=== PATIENT | male | born 1965 | race Caucasian/White ===

== ENCOUNTER 2016-12-04 19:07 | Emergency (ER) | payer OTHER ==
[~2016-12-04] VITALS: Ht 175.2 cm; Wt 95.3 kg
[~2016-12-04 19:07] MED LIST: ATARAX,VISTARIL50 MG PO; CARAFATE1 G1 PO; CELEXA40 MG PO; CLEOCIN150 MG PO; CLINDAMYCIN HC300 MG PO; CLONAZEPAM1 MG PO; DULOXETINE HCL60 MG PO; HYDROCODONE BIT1 T11 PO; KLONOPIN1 M1 PO; LAMICTAL25 MG PO; METHOCARBAMOL750 M1 PO; MOTRIN800 MG PO; NEURONTIN300 MG PO; PEN-VEE K500 MG PO; PEPCID20 MG PO; PREDNISONE20 M1 PO; PRILOSEC20 MG PO; SEROQUEL200 MG PO; TRIXAICIN HP0.075% T; ULTRAM50 MG PO; VICODIN 5-3001 EACH PO; VISTARIL50 MG PO; VITAMIN D-32000 UNI1 PO; VITAMIN D50000 I3 PO
[2016-12-04 20:02] LABS: BASO # 0.1 10*3/uL (0.0-0.1); BASO % 0.4 % (0.0-1.0); EOS # 0.3 10*3/uL (0.0-0.4); EOS % 2.5 % (1.0-4.0); HEMATOCRIT 49.3 % (42.0-52.0); HEMOGLOBIN 16.9 g/dl (14.0-18.0); IG # 0.1 10*3/uL (0.0-0.1); LYMPH # 2.3 10*3/uL (1.3-4.4); LYMPH % 17.8 % (27.0-41.0); MEAN CELL VOLUME 98.2 fl (80.0-94.0); MEAN CORPUSCULAR HGB 33.7 pg (27.0-31.0); MEAN CORPUSCULAR HGB CONC 34.3 g/dl (33.0-37.0); MEAN PLATELET VOLUME 10.7 fl (9.6-12.3); MONO # 0.6 10*3/uL (0.1-1.0); MONO % 4.9 % (3.0-9.0); NEUT # 9.4 10*3/uL (2.3-7.9); PLATELET COUNT AUTOMATED 237 10*3/uL (130-400); RED BLOOD COUNT 5.02 10*6/uL (4.50-5.90); RED CELL DISTRI WIDTH 15.3 % (0-14.5); WHITE BLOOD COUNT 12.6 10*3/uL (4.8-10.8)
[2016-12-04 20:21] LABS: INTERNATIONAL NORM RATIO 0.9 (2.0-3.5); PROTHROMBIN TIME 9.6 SECONDS (9.0-12.4)
[2016-12-04 20:25] LABS: ALBUMIN 3.8 gm/dl (3.1-4.5); ALKALINE PHOSPHATASE 65 U/L (45-117); BILIRUBIN, DIRECT 0.1 mg/dL (0.0-0.2); BILIRUBIN, TOTAL 0.5 mg/dl (0.2-1.0); BUN 9 mg/dl (7-24); CARBON DIOXIDE 24 mmol/L (21-32); CHLORIDE 109 mmol/L (98-107); EST GLOM FILT AFRICAN AMERICAN > 60 ml/min; GLUCOSE 82 mg/dL (65-99); POTASSIUM 4.4 mmol/L (3.5-5.1); SGOT/AST 24 IU/L (3-35); SGPT/ALT 37 U/L (12-78); SODIUM 145 mmol/L (136-145)
[2016-12-04] MEDS ORDERED: TYLENOL325 M2 PO (22:00)
== END 2016-12-04 21:50 | disposition home or self-care (01) ==
LOC: ED 19:07
PROVIDERS: Emergency Medicine
DX: S00.12XA Contusion of left eyelid and periocular area, initial encounter (principal); S50.02XA Contusion of left elbow, initial encounter; S50.01XA Contusion of right elbow, initial encounter; S80.212A Abrasion, left knee, initial encounter; S80.211A Abrasion, right knee, initial encounter; S09.90XA Unspecified injury of head, initial encounter; M25.512 Pain in left shoulder; M25.511 Pain in right shoulder; F32.9 Major depressive disorder, single episode, unspecified; K21.9 Gastro-esophageal reflux disease without esophagitis; E78.00 Pure hypercholesterolemia, unspecified; Y08.89XA Assault by other specified means, initial encounter; Y93.89 Activity, other specified; Y92.89 Other specified places as the place of occurrence of the external cause; Y99.9 Unspecified external cause status

== ENCOUNTER 2022-04-22 12:09 | Inpatient (IN) | payer MEDICAID ==
[~2022-04-22] VITALS: Ht 170.1 cm; Wt 71.7 kg
[~2022-04-22 12:09] MED LIST changes: +BREO ELLIPTA 11 EACH INH; +BUDESONIDE-FO10.2 GM INH; +LEVOFLOXACIN500 MG PO; +LISINOPRIL10 M1 PO; +PREDNISONE10 MG PO; +PROAIR HFA8.5 GM INH; +SPIRIVA -- 3018 MCG INH; +TYLENOL325 M2 PO
[2022-04-22 12:15] VITALS: BP 132/75
[2022-04-22 12:44] LABS: BASO % 0.5 % (0.0-1.0); EOS # 0.8 10*3/uL (0.0-0.4); EOS % 11.9 % (1.0-4.0); HEMATOCRIT 44.6 % (42.0-52.0); LYMPH # 1.1 10*3/uL (1.3-4.4); LYMPH % 16.2 % (27.0-41.0); MEAN CELL VOLUME 95.7 fl (80.0-94.0); MEAN CORPUSCULAR HGB 32.8 pg (27.0-31.0); MEAN CORPUSCULAR HGB CONC 34.3 g/dl (33.0-37.0); MEAN PLATELET VOLUME 10.7 fl (9.6-12.3); MONO # 0.7 10*3/uL (0.1-1.0); MONO % 10.3 % (3.0-9.0); NEUT # 3.9 10*3/uL (2.3-7.9); NEUT % 60.8 % (47.0-73.0); PLATELET COUNT AUTOMATED 265 10*3/uL (130-400); RED BLOOD COUNT 4.66 10*6/uL (4.50-5.90); RED CELL DISTRI WIDTH 15.6 % (0-14.5); WHITE BLOOD COUNT 6.5 10*3/uL (4.8-10.8)
[2022-04-22 13:00] LABS: ACT PARTIAL THROMBO TIME 33.3 SECONDS (20.0-32.1); INTERNATIONAL NORM RATIO 0.9 (2.0-3.5)
[2022-04-22 13:03] LABS: ALKALINE PHOSPHATASE 73 U/L (45-117); BUN 8 mg/dl (7-24); CHLORIDE 106 mmol/L (98-107); CREATININE 0.64 mg/dL (0.70-1.30); POTASSIUM 4.3 mmol/L (3.5-5.1); SGOT/AST 17 IU/L (3-35); SGPT/ALT 30 U/L (12-78); SODIUM 136 mmol/L (136-145); TOTAL PROTEIN 7.1 gm/dL (6.4-8.2)
[2022-04-22 13:03] LABS: BILIRUBIN Negative (Negative); BLOOD Negative (Negative); CLARITY Clear (Clear); COLOR Yellow (Yellow); GLUCOSE Negative (Negative); KETONE Negative (Negative); LEUKO ESTERASE Negative (Negative); NITRITE Negative (Negative); PH 8.5 (4.5-8.0); SPECIFIC GRAVITY 1.015 (1.001-1.030)
[2022-04-22 13:12] LABS: BACTERIA TRACE; EPITHELIAL CELLS 0-2; MUCOUS 1+
[2022-04-22 15:00] VITALS: BP 120/74
[2022-04-22] MEDS ORDERED: PERCOCET 7.5-31 EACH PO (15:20)
[2022-04-22 20:00] VITALS: BP 135/64
[2022-04-23] VITALS: BP 142/68
[2022-04-23 06:33] LABS: HEMATOCRIT 43.7 % (42.0-52.0); MEAN CELL VOLUME 95.8 fl (80.0-94.0); MEAN CORPUSCULAR HGB 33.1 pg (27.0-31.0); MEAN CORPUSCULAR HGB CONC 34.6 g/dl (33.0-37.0); MEAN PLATELET VOLUME 11.5 fl (9.6-12.3); PLATELET COUNT AUTOMATED 247 10*3/uL (130-400); RED BLOOD COUNT 4.56 10*6/uL (4.50-5.90); RED CELL DISTRI WIDTH 15.1 % (0-14.5); WHITE BLOOD COUNT 9.5 10*3/uL (4.8-10.8)
[2022-04-23 06:37] LABS: MANUAL DIFF REFLEX YES
[2022-04-23 06:54] LABS: BUN 9 mg/dl (7-24); CHLORIDE 103 mmol/L (98-107); CREATININE 0.75 mg/dL (0.70-1.30); POTASSIUM 3.9 mmol/L (3.5-5.1); SODIUM 134 mmol/L (136-145)
[2022-04-23 07:39] LABS: PLATELET SUFFICIENCY NORMAL (NORMAL); TOTAL CELLS COUNTED 100 #CELLS
[2022-04-23 08:00] VITALS: BP 136/71
[2022-04-23] MEDS ORDERED: VITAMIN D350 MC2 PO (10:05)
[2022-04-23] MEDS ORDERED: PREDNISONE10 MG PO (10:05)
[2022-04-23] MEDS ORDERED: LEVOFLOXACIN500 MG PO (10:05)
== END 2022-04-23 10:56 | disposition home or self-care (01) | DRG 190 ==
LOC: ED 12:09 → EDHOLD 13:31 → 5E 14:09
PROVIDERS: Emergency Medicine; Internal Medicine; ADMIT Internal Medicine; ATTEND Internal Medicine
DX: J44.1 Chronic obstructive pulmonary disease with (acute) exacerbation (principal); J18.9 Pneumonia, unspecified organism; J44.0 Chronic obstructive pulmonary disease with (acute) lower respiratory infection; F17.219 Nicotine dependence, cigarettes, with unspecified nicotine-induced disorders; W19.XXXA Unspecified fall, initial encounter; M25.511 Pain in right shoulder; G89.29 Other chronic pain; D75.89 Other specified diseases of blood and blood-forming organs; K21.9 Gastro-esophageal reflux disease without esophagitis; E78.00 Pure hypercholesterolemia, unspecified; F32.A Depression, unspecified; I10 Essential (primary) hypertension; F17.210 Nicotine dependence, cigarettes, uncomplicated; Y93.89 Activity, other specified; Y92.89 Other specified places as the place of occurrence of the external cause; Y99.8 Other external cause status

== ENCOUNTER 2022-05-21 10:37 | Inpatient (IN) | payer MEDICAID ==
[2022-05-21] VITALS (7 sets, daily range): BP systolic 90–121; BP diastolic 58–91
[~2022-05-21] VITALS: Ht 175.3 cm; Wt 74.8 kg
[~2022-05-21 10:37] MED LIST changes: +PERCOCET 7.5-31 EACH PO; +VITAMIN D350 MC2 PO
[2022-05-21 10:56] LABS: BASO % 0.6 % (0.0-1.0); EOS # 0.9 10*3/uL (0.0-0.4); EOS % 14.3 % (1.0-4.0); HEMATOCRIT 42.5 % (42.0-52.0); LYMPH % 14.9 % (27.0-41.0); MEAN CELL VOLUME 98.4 fl (80.0-94.0); MEAN CORPUSCULAR HGB 32.6 pg (27.0-31.0); MEAN CORPUSCULAR HGB CONC 33.2 g/dl (33.0-37.0); MEAN PLATELET VOLUME 10.4 fl (9.6-12.3); MONO # 0.5 10*3/uL (0.1-1.0); MONO % 7.3 % (3.0-9.0); NEUT # 4.1 10*3/uL (2.3-7.9); NEUT % 62.6 % (47.0-73.0); PLATELET COUNT AUTOMATED 246 10*3/uL (130-400); RED BLOOD COUNT 4.32 10*6/uL (4.50-5.90); RED CELL DISTRI WIDTH 15.7 % (0-14.5); WHITE BLOOD COUNT 6.6 10*3/uL (4.8-10.8)
[2022-05-21 11:13] LABS: ALKALINE PHOSPHATASE 72 U/L (45-117); BUN 8 mg/dl (7-24); CHLORIDE 105 mmol/L (98-107); CREATININE 0.59 mg/dL (0.70-1.30); POTASSIUM 4.4 mmol/L (3.5-5.1); SGOT/AST 18 IU/L (3-35); SGPT/ALT 19 U/L (12-78); SODIUM 141 mmol/L (136-145); TOTAL PROTEIN 6.8 gm/dL (6.4-8.2)
[2022-05-21 11:14] LABS: ACT PARTIAL THROMBO TIME 31.5 SECONDS (20.0-32.1); INTERNATIONAL NORM RATIO 0.9 (2.0-3.5)
[2022-05-21] MEDS ORDERED: KENALOG 0.1%80 GM T (11:42)
[2022-05-21] MEDS ORDERED: NEURONTIN300 MG PO (11:43)
[2022-05-21] MEDS ORDERED: COMBIVENT RESPIM4 GM INH (11:43)
[2022-05-21] MEDS ORDERED: ALLERGY RELIEF180 MG PO (11:44)
[2022-05-21 16:50] LABS: BILIRUBIN Negative (Negative); BLOOD 3+ (Negative); CLARITY Cloudy (Clear); COLOR Yellow (Yellow); GLUCOSE Negative (Negative); KETONE Trace (Negative); LEUKO ESTERASE Negative (Negative); NITRITE Negative (Negative); PH 6.5 (4.5-8.0); SPECIFIC GRAVITY 1.015 (1.001-1.030)
[2022-05-21 16:58] LABS: BACTERIA 1+; EPITHELIAL CELLS 0-2; RBC TNTC rbc/hpf (0-2)
[2022-05-22] VITALS: BP 106/66
[2022-05-22 06:13] LABS: MEAN CELL VOLUME 97.6 fl (80.0-94.0); MEAN CORPUSCULAR HGB 33.3 pg (27.0-31.0); MEAN CORPUSCULAR HGB CONC 34.2 g/dl (33.0-37.0); MEAN PLATELET VOLUME 11.1 fl (9.6-12.3); PLATELET COUNT AUTOMATED 235 10*3/uL (130-400); RED BLOOD COUNT 3.69 10*6/uL (4.50-5.90); RED CELL DISTRI WIDTH 15.7 % (0-14.5); WHITE BLOOD COUNT 7.2 10*3/uL (4.8-10.8)
[2022-05-22 06:36] LABS: BUN 6 mg/dl (7-24); CHLORIDE 107 mmol/L (98-107); POTASSIUM 3.8 mmol/L (3.5-5.1); SODIUM 138 mmol/L (136-145)
[2022-05-22 06:44] LABS: ALKALINE PHOSPHATASE 54 U/L (45-117); CHOLESTEROL 179 mg/dL (<200); FREE T4 0.83 ng/dl (0.76-1.46); LDL CHOLESTEROL 54 mg/dL (9-159); SGOT/AST 18 IU/L (3-35); SGPT/ALT 15 U/L (12-78); THYROID STIM HORMONE (HS) 0.116 uIU/ml (0.358-4.75); TRIGLYCERIDES 37 mg/dl (<150)
[2022-05-22 06:45] LABS: MANUAL DIFF REFLEX YES
[2022-05-22 07:11] LABS: TOTAL CELLS COUNTED 100 #CELLS
[2022-05-22 07:12] LABS: PLATELET SUFFICIENCY NORMAL (NORMAL); POLYCHROMASIA SLIGHT
[2022-05-22 08:00] VITALS: BP 142/84
[2022-05-22 10:39] LABS: VITAMIN D, 25-HYDROXY 27.7 ng/mL (30-100)
[2022-05-22 12:00] VITALS: BP 101/55
[2022-05-22 16:00] VITALS: BP 97/60
[2022-05-22 20:00] VITALS: BP 108/67
[2022-05-23] VITALS: BP 113/68
[2022-05-23 05:33] LABS: BUN 7 mg/dl (7-24); CHLORIDE 107 mmol/L (98-107); SODIUM 141 mmol/L (136-145)
[2022-05-23 06:17] LABS: HEMATOCRIT 37.3 % (42.0-52.0); MEAN CELL VOLUME 98.2 fl (80.0-94.0); MEAN CORPUSCULAR HGB 32.6 pg (27.0-31.0); MEAN CORPUSCULAR HGB CONC 33.2 g/dl (33.0-37.0); MEAN PLATELET VOLUME 11.3 fl (9.6-12.3); PLATELET COUNT AUTOMATED 250 10*3/uL (130-400); RED CELL DISTRI WIDTH 16.3 % (0-14.5); WHITE BLOOD COUNT 13.2 10*3/uL (4.8-10.8)
[2022-05-23 06:21] LABS: MANUAL DIFF REFLEX YES
[2022-05-23 06:49] LABS: TOTAL CELLS COUNTED 100 #CELLS
[2022-05-23 06:50] LABS: OVALOCYTES FEW; PLATELET SUFFICIENCY NORMAL (NORMAL); POLYCHROMASIA SLIGHT
[2022-05-23 08:00] VITALS: BP 112/57
[2022-05-23 12:00] VITALS: BP 101/63
[2022-05-23 16:00] VITALS: BP 95/54
[2022-05-23 20:00] VITALS: BP 103/52
[2022-05-24] VITALS: BP 116/75
[2022-05-24 05:54] LABS: BUN 11 mg/dl (7-24); CHLORIDE 105 mmol/L (98-107); CREATININE 0.62 mg/dL (0.70-1.30); POTASSIUM 4.2 mmol/L (3.5-5.1); SODIUM 139 mmol/L (136-145)
[2022-05-24 06:00] LABS: HEMATOCRIT 35.3 % (42.0-52.0); MEAN PLATELET VOLUME 11.3 fl (9.6-12.3); PLATELET COUNT AUTOMATED 245 10*3/uL (130-400); RED BLOOD COUNT 3.64 10*6/uL (4.50-5.90); RED CELL DISTRI WIDTH 16.3 % (0-14.5); WHITE BLOOD COUNT 9.9 10*3/uL (4.8-10.8)
[2022-05-24 06:14] LABS: MANUAL DIFF REFLEX YES
[2022-05-24 07:22] LABS: ATYPICAL LYMPHS 1 % (0-0); PLATELET SUFFICIENCY NORMAL (NORMAL); TOTAL CELLS COUNTED 100 #CELLS
[2022-05-24 07:23] LABS: BURR CELLS FEW
[2022-05-24 08:00] VITALS: BP 122/64
[2022-05-24] MEDS ORDERED: ASPIRIN ADULT L81 M2 PO (09:48)
[2022-05-24] MEDS ORDERED: PREDNISONE10 MG PO (09:50)
[2022-05-24] MEDS ORDERED: ATORVASTATIN CA20 M1 PO (09:51)
[2022-05-24] MEDS ORDERED: TOPROL XL25 MG PO (09:52)
[2022-05-24] MEDS ORDERED: LEVOFLOXACIN750 M2 PO (09:53)
[2022-05-24 12:00] VITALS: BP 129/62
== END 2022-05-24 12:30 | disposition home or self-care (01) | DRG 871 ==
LOC: ED 10:37 → EDHOLD 11:32 → 4E 11:32 → EDHOLD 11:41 → 4E 18:49
PROVIDERS: Emergency Medicine; Internal Medicine; ADMIT Emergency Medicine; ATTEND Emergency Medicine
PROC: 5A09357 Assistance with Respiratory Ventilation, Less than 24 Consecutive Hours, Continuous Positive Airway Pressure (ICD-10-PCS; principal; 2022-05-21)
DX: A41.9 Sepsis, unspecified organism (principal); I21.4 Non-ST elevation (NSTEMI) myocardial infarction; J15.6 Pneumonia due to other Gram-negative bacteria; J96.01 Acute respiratory failure with hypoxia; J44.1 Chronic obstructive pulmonary disease with (acute) exacerbation; J44.0 Chronic obstructive pulmonary disease with (acute) lower respiratory infection; G89.29 Other chronic pain; M25.511 Pain in right shoulder; E78.00 Pure hypercholesterolemia, unspecified; F32.9 Major depressive disorder, single episode, unspecified; R73.9 Hyperglycemia, unspecified; K21.9 Gastro-esophageal reflux disease without esophagitis; I10 Essential (primary) hypertension; F17.200 Nicotine dependence, unspecified, uncomplicated; R31.0 Gross hematuria; Z83.3 Family history of diabetes mellitus; Z82.49 Family history of ischemic heart disease and other diseases of the circulatory system; Z79.899 Other long term (current) drug therapy

== ENCOUNTER 2022-06-25 08:07 | Inpatient (IN) | payer MEDICAID ==
[2022-06-25] VITALS (17 sets, daily range): BP systolic 85–183; BP diastolic 47–108
[~2022-06-25] VITALS: Ht 170.1 cm; Wt 68.5 kg
[~2022-06-25 08:07] MED LIST changes: +ALLERGY RELIEF180 MG PO; +ASPIRIN ADULT L81 M2 PO; +ATORVASTATIN CA20 M1 PO; +COMBIVENT RESPIM4 GM INH; +KENALOG 0.1%80 GM T; +LEVOFLOXACIN750 M2 PO; +TOPROL XL25 MG PO
[2022-06-25 08:29] LABS: BASO # 0.1 10*3/uL (0.0-0.1); BASO % 0.8 % (0.0-1.0); EOS # 0.6 10*3/uL (0.0-0.4); EOS % 7.6 % (1.0-4.0); HEMATOCRIT 41.6 % (42.0-52.0); LYMPH # 2.1 10*3/uL (1.3-4.4); LYMPH % 28.5 % (27.0-41.0); MEAN CORPUSCULAR HGB 33.2 pg (27.0-31.0); MEAN CORPUSCULAR HGB CONC 33.2 g/dl (33.0-37.0); MEAN PLATELET VOLUME 10.1 fl (9.6-12.3); MONO # 0.6 10*3/uL (0.1-1.0); MONO % 7.9 % (3.0-9.0); NEUT % 54.8 % (47.0-73.0); PLATELET COUNT AUTOMATED 320 10*3/uL (130-400); RED BLOOD COUNT 4.16 10*6/uL (4.50-5.90); WHITE BLOOD COUNT 7.2 10*3/uL (4.8-10.8)
[2022-06-25 08:47] LABS: ALKALINE PHOSPHATASE 73 U/L (45-117); BUN 8 mg/dl (7-24); CHLORIDE 107 mmol/L (98-107); CREATININE 0.82 mg/dL (0.70-1.30); POTASSIUM 4.1 mmol/L (3.5-5.1); SGOT/AST 16 IU/L (3-35); SGPT/ALT 19 U/L (12-78); SODIUM 137 mmol/L (136-145); TOTAL PROTEIN 6.7 gm/dL (6.4-8.2)
[2022-06-25 18:03] LABS: BILIRUBIN Negative (Negative); BLOOD Negative (Negative); CLARITY Clear (Clear); COLOR Yellow (Yellow); GLUCOSE 1+ (Negative); KETONE 2+ (Negative); LEUKO ESTERASE Negative (Negative); NITRITE Negative (Negative); SPECIFIC GRAVITY >= 1.030 (1.001-1.030)
[2022-06-25 18:56] LABS: BACTERIA TRACE
[2022-06-26] VITALS (11 sets, daily range): BP systolic 95–117; BP diastolic 44–58
[2022-06-26 06:17] LABS: ALKALINE PHOSPHATASE 55 U/L (45-117); BUN 9 mg/dl (7-24); CHLORIDE 106 mmol/L (98-107); CHOLESTEROL 153 mg/dL (<200); CREATININE 0.61 mg/dL (0.70-1.30); POTASSIUM 4.2 mmol/L (3.5-5.1); SGOT/AST 15 IU/L (3-35); SGPT/ALT 15 U/L (12-78); SODIUM 136 mmol/L (136-145); TOTAL PROTEIN 5.8 gm/dL (6.4-8.2); TRIGLYCERIDES 45 mg/dl (<150)
[2022-06-26 06:18] LABS: FREE T4 0.95 ng/dl (0.76-1.46)
[2022-06-26 06:23] LABS: LDL CHOLESTEROL 44 mg/dL (9-159); THYROID STIM HORMONE (HS) 0.089 uIU/ml (0.358-4.75)
[2022-06-26 06:37] LABS: BASO % 0.1 % (0.0-1.0); LYMPH # 0.8 10*3/uL (1.3-4.4); LYMPH % 7.4 % (27.0-41.0); MEAN CELL VOLUME 97.5 fl (80.0-94.0); MEAN CORPUSCULAR HGB 32.9 pg (27.0-31.0); MEAN CORPUSCULAR HGB CONC 33.7 g/dl (33.0-37.0); MEAN PLATELET VOLUME 11.1 fl (9.6-12.3); MONO # 0.4 10*3/uL (0.1-1.0); MONO % 3.9 % (3.0-9.0); NEUT # 9.4 10*3/uL (2.3-7.9); NEUT % 88.1 % (47.0-73.0); PLATELET COUNT AUTOMATED 278 10*3/uL (130-400); RED BLOOD COUNT 3.59 10*6/uL (4.50-5.90); RED CELL DISTRI WIDTH 15.2 % (0-14.5); WHITE BLOOD COUNT 10.6 10*3/uL (4.8-10.8)
[2022-06-27] VITALS: BP 116/58
[2022-06-27 05:57] LABS: BUN 11 mg/dl (7-24); CHLORIDE 106 mmol/L (98-107); CREATININE 0.55 mg/dL (0.70-1.30); POTASSIUM 4.5 mmol/L (3.5-5.1); SODIUM 139 mmol/L (136-145)
[2022-06-27 06:17] LABS: HEMATOCRIT 33.7 % (42.0-52.0); MEAN CELL VOLUME 96.8 fl (80.0-94.0); MEAN CORPUSCULAR HGB CONC 34.1 g/dl (33.0-37.0); MEAN PLATELET VOLUME 11.5 fl (9.6-12.3); PLATELET COUNT AUTOMATED 286 10*3/uL (130-400); RED BLOOD COUNT 3.48 10*6/uL (4.50-5.90); RED CELL DISTRI WIDTH 15.5 % (0-14.5)
[2022-06-27 06:19] LABS: MANUAL DIFF REFLEX YES
[2022-06-27 06:56] LABS: PLATELET SUFFICIENCY NORMAL (NORMAL); POLYCHROMASIA SLIGHT; ROULEAUX SLIGHT; TOTAL CELLS COUNTED 100 #CELLS
[2022-06-27 06:57] LABS: TARGET CELLS FEW
[2022-06-27 08:00] VITALS: BP 127/50
[2022-06-27 12:00] VITALS: BP 115/57
[2022-06-27 16:00] VITALS: BP 100/55
[2022-06-27 20:00] VITALS: BP 113/58
[2022-06-28] VITALS: BP 118/61
[2022-06-28 07:46] LABS: BASO % 0.1 % (0.0-1.0); LYMPH # 0.7 10*3/uL (1.3-4.4); LYMPH % 7.7 % (27.0-41.0); MEAN CELL VOLUME 98.8 fl (80.0-94.0); MEAN CORPUSCULAR HGB 32.3 pg (27.0-31.0); MEAN CORPUSCULAR HGB CONC 32.6 g/dl (33.0-37.0); MEAN PLATELET VOLUME 11.5 fl (9.6-12.3); MONO # 0.3 10*3/uL (0.1-1.0); MONO % 2.8 % (3.0-9.0); NEUT # 8.5 10*3/uL (2.3-7.9); NEUT % 88.5 % (47.0-73.0); PLATELET COUNT AUTOMATED 272 10*3/uL (130-400); RED BLOOD COUNT 3.44 10*6/uL (4.50-5.90); RED CELL DISTRI WIDTH 15.5 % (0-14.5); WHITE BLOOD COUNT 9.6 10*3/uL (4.8-10.8)
[2022-06-28 08:00] VITALS: BP 113/42
[2022-06-28 08:00] LABS: ALKALINE PHOSPHATASE 50 U/L (45-117); BUN 13 mg/dl (7-24); CHLORIDE 104 mmol/L (98-107); CREATININE 0.69 mg/dL (0.70-1.30); POTASSIUM 4.4 mmol/L (3.5-5.1); SGOT/AST 18 IU/L (3-35); SGPT/ALT 31 U/L (12-78); SODIUM 134 mmol/L (136-145); TOTAL PROTEIN 5.9 gm/dL (6.4-8.2)
[2022-06-28 12:00] VITALS: BP 113/56
[2022-06-28 16:00] VITALS: BP 114/61
[2022-06-28 17:28] LABS: ABG BASE EXCESS 2.7 mmol/L (-2.0-2.0); ARTERIAL BLOOD GAS PH 7.446 (7.35-7.45); ARTERIAL BLOOD GAS PO2 67.7 (80-90)
[2022-06-28 20:00] VITALS: BP 118/61
[2022-06-29] VITALS: BP 127/61
[2022-06-29 08:00] VITALS: BP 126/62
[2022-06-29] MEDS ORDERED: ASPIRIN ADULT L81 M2 PO (13:11)
[2022-06-29] MEDS ORDERED: DOXYCYCLINE HY100 M3 PO (13:11)
[2022-06-29] MEDS ORDERED: ATORVASTATIN CA40 M1 PO (13:11)
[2022-06-29] MEDS ORDERED: METOPROLOL SUCC25 M2 PO (13:11)
[2022-06-29] MEDS ORDERED: PREDNISONE10 MG PO (13:11)
[2022-06-29] MEDS ORDERED: ALBUTEROL2.5 MG/0.5 INH (13:24)
== END 2022-06-29 14:00 | disposition home or self-care (01) | DRG 871 ==
LOC: ED 08:07 → EDHOLD 11:42 → 5E 11:42
PROVIDERS: Emergency Medicine; Internal Medicine; Internal Medicine Critical Care Medicine; Student in an Organized Health Care Education/Training Program; ADMIT Emergency Medicine; ATTEND Emergency Medicine
PROC: 5A09357 Assistance with Respiratory Ventilation, Less than 24 Consecutive Hours, Continuous Positive Airway Pressure (ICD-10-PCS; principal; 2022-06-25)
PROC: 5A09357 Assistance with Respiratory Ventilation, Less than 24 Consecutive Hours, Continuous Positive Airway Pressure (ICD-10-PCS; 2022-06-26)
PROC: 5A09357 Assistance with Respiratory Ventilation, Less than 24 Consecutive Hours, Continuous Positive Airway Pressure (ICD-10-PCS; 2022-06-28)
DX: A41.9 Sepsis, unspecified organism (principal); I21.4 Non-ST elevation (NSTEMI) myocardial infarction; J96.01 Acute respiratory failure with hypoxia; R65.21 Severe sepsis with septic shock; J18.9 Pneumonia, unspecified organism; J44.1 Chronic obstructive pulmonary disease with (acute) exacerbation; E44.0 Moderate protein-calorie malnutrition; I25.10 Atherosclerotic heart disease of native coronary artery without angina pectoris; F32.9 Major depressive disorder, single episode, unspecified; R73.9 Hyperglycemia, unspecified; K21.9 Gastro-esophageal reflux disease without esophagitis; I95.9 Hypotension, unspecified; D53.9 Nutritional anemia, unspecified; I10 Essential (primary) hypertension; E78.00 Pure hypercholesterolemia, unspecified; Z83.3 Family history of diabetes mellitus; Z82.49 Family history of ischemic heart disease and other diseases of the circulatory system; I25.2 Old myocardial infarction; Z68.23 Body mass index [BMI] 23.0-23.9, adult

== ENCOUNTER 2022-12-02 10:45 | Emergency (ER) | payer MEDICAID ==
[~2022-12-02] VITALS: Ht 172.7 cm; Wt 90.7 kg
[~2022-12-02 10:45] MED LIST changes: +ALBUTEROL2.5 MG/0.5 INH; +ATORVASTATIN CA40 M1 PO; +CIPRO500 MG PO; +DOXYCYCLINE HY100 M3 PO; +METOPROLOL SUCC25 M2 PO; +MUCINEX ER600 MG PO; +MUCINEX1200 M1 PO
[2022-12-02] MEDS ORDERED: XANAX0.25 MG PO (11:22)
[2022-12-02] MEDS ORDERED: VENT7GM INH (11:23)
[2022-12-02] MEDS ORDERED: OXYGEN NAS (11:24)
[2022-12-02 12:27] LABS: BILIRUBIN 3+ (Negative); BLOOD 3+ (Negative); CLARITY Turbid (Clear); COLOR Red (Yellow); GLUCOSE Negative (Negative); KETONE 2+ (Negative); LEUKO ESTERASE 3+ (Negative); NITRITE Positive (Negative); UROBILINOGEN 0.2 E.U./dl (0.0-1.0)
[2022-12-02 12:30] LABS: BASO % 0.5 % (0.0-1.0); EOS # 0.2 10*3/uL (0.0-0.4); EOS % 2.1 % (1.0-4.0); HEMATOCRIT 44.4 % (42.0-52.0); LYMPH # 0.7 10*3/uL (1.3-4.4); LYMPH % 8.5 % (27.0-41.0); MEAN CORPUSCULAR HGB 33.1 pg (27.0-31.0); MEAN CORPUSCULAR HGB CONC 33.1 g/dl (33.0-37.0); MEAN PLATELET VOLUME 10.9 fl (9.6-12.3); MONO # 0.6 10*3/uL (0.1-1.0); MONO % 6.7 % (3.0-9.0); NEUT # 7.1 10*3/uL (2.3-7.9); NEUT % 81.9 % (47.0-73.0); PLATELET COUNT AUTOMATED 245 10*3/uL (130-400); RED BLOOD COUNT 4.44 10*6/uL (4.50-5.90); RED CELL DISTRI WIDTH 15.9 % (0-14.5); WHITE BLOOD COUNT 8.6 10*3/uL (4.8-10.8)
[2022-12-02 12:34] LABS: BACTERIA 4+; RBC TNTC rbc/hpf (0-2)
[2022-12-02 12:47] LABS: ALKALINE PHOSPHATASE 61 U/L (46-116); BUN 13 mg/dl (9-23); CHLORIDE 106 mmol/L (98-107); LIPASE 28 U/L (12-53); POTASSIUM 4.4 mmol/L (3.4-5.1); SGPT/ALT 14 U/L (10-49); TOTAL PROTEIN 6.8 gm/dL (6.0-8.0)
[2022-12-02] MEDS ORDERED: SEPTDS PO (14:04)
== END 2022-12-02 14:35 | disposition home or self-care (01) ==
LOC: ED 10:45
PROVIDERS: Physician Assistant
DX: N39.0 Urinary tract infection, site not specified (principal); R31.9 Hematuria, unspecified; Z98.890 Other specified postprocedural states; Z87.891 Personal history of nicotine dependence